=== PATIENT | male | born 1965 | race African-American/Black ===

== ENCOUNTER 2021-01-14 14:18 | Emergency (ER) | payer MEDICAID ==
[~2021-01-14] VITALS: Ht 175.3 cm; Wt 85.0 kg
[2021-01-14 17:00] LABS: CLARITY URINE CLEAR (CLEAR); COLOR URINE YELLOW (YELLOW); KETONES URINE TRACE (NEGATIVE); LEUKOCYTE ESTERASE URINE 1+ (NEGATIVE); NITRITE URINE NEGATIVE (NEGATIVE); OCCULT BLOOD URINE 3+ (NEGATIVE); PH URINE 5.5 (4.5-8.0); PROTEIN URINE NEGATIVE (NEGATIVE); SPECIFIC GRAVITY URINE 1.025 (1.005-1.030)
[2021-01-14 17:30] LABS: CHLORIDE 107 mEq/L (98-107)
[2021-01-14] MEDS ORDERED: CIPR-263 MT (17:56)
[2021-01-14 18:19] VITALS: BP 133/90
== END 2021-01-14 18:20 | disposition home or self-care (01) ==
LOC: ER 14:18
DX: N30.90 Cystitis, unspecified without hematuria (principal); I10 Essential (primary) hypertension; F12.10 Cannabis abuse, uncomplicated
CPT/HCPCS: 36415; 80048; 81003; 93005; 99284

== ENCOUNTER 2024-03-08 15:57 | Emergency (ER) | payer MEDICAID ==
[~2024-03-08] VITALS: Ht 170.2 cm; Wt 75.0 kg
[~2024-03-08 15:57] MED LIST: CIPR-263 MT
[2024-03-08 16:03] VITALS: O2SAT 99
[2024-03-08 17:44] LABS: BASOPHILS % 0.6 % (0.0-2.0); EOSINOPHILS % 1.1 % (0.0-5.0); HEMATOCRIT. 40.5 % (42.0-52.0); HEMOGLOBIN. 13.5 g/dL (14.0-18.0); LYMPHOCYTES % 18.2 % (20.0-50.0); MEAN CORPUSCULAR HEMOGLOBIN 29.9 pg (28.0-32.0); MEAN CORPUSCULAR HGB CONC 33.3 g/dL (31.0-37.0); MEAN CORPUSCULAR VOLUME 89.8 fL (80.0-94.0); MEAN PLATELET VOLUME 9.1 fl (7.4-10.4); MONOCYTES % 10.5 % (2.0-8.0); NEUTROPHILS % 69.6 % (40.0-76.0); PLATELET 214 x1000/uL (130-400); RED BLOOD CELL COUNT 4.51 mill/uL (4.7-6.1); RED CELL DISTRIBUTION WIDTH 13.7 % (11.6-14.6); WHITE BLOOD COUNT 6.6 x1000/uL (4.5-11.0)
[2024-03-08 17:48] LABS: CHLORIDE 103 mEq/L (98-107); POTASSIUM 2.9 mEq/L (3.5-5.1); SODIUM 138 mEq/L (136-145)
[2024-03-08 17:49] LABS: CARBON DIOXIDE 29 mEq/L (21-32)
[2024-03-08 17:54] LABS: CREATININE 0.7 mg/dL (0.6-1.3)
[2024-03-08 17:55] LABS: GLUCOSE 89 mg/dL (70-105); UREA NITROGEN BLOOD 11 mg/dL (9-23)
[2024-03-08 17:56] LABS: TROPONIN I HIGH SENSITIVITY 15 ng/L (3.0-53)
[2024-03-08 18:11] LABS: PROTHROMBIN TIME 10.8 sec (9.6-11.0)
[2024-03-08] MEDS: POTASSIUM CHLORIDE 20MEQ TABLET SR PO ONE (19:49)
[2024-03-08 20:38] LABS: TROPONIN I HIGH SENSITIVITY 22 ng/L (3.0-53)
[2024-03-08 22:08] VITALS: BP 179/90; PULSE 75; RESP 16; TEMP 98.2
== END 2024-03-08 22:32 | disposition home or self-care (01) ==
LOC: ER 16:03
DX: R07.89 Other chest pain (principal); E87.6 Hypokalemia; I10 Essential (primary) hypertension; F12.10 Cannabis abuse, uncomplicated
CPT/HCPCS: 36415; 71045; 80048; 84484; 85025; 93005; 99285

== ENCOUNTER 2024-06-29 16:28 | Emergency (ER) | payer MEDICAID ==
[~2024-06-29] VITALS: Ht 177.8 cm; Wt 73.0 kg
[2024-06-29 16:36] VITALS: O2SAT 98
[2024-06-29] MEDS: ASPIRIN 81MG TABLET PO ONE (17:25)
[2024-06-29] MEDS: KETOROLAC 15MG/ML VIAL IV ONE (17:25)
[2024-06-29] MEDS: ACETAMINOPHEN 325MG TABLET PO ONE (17:25)
[2024-06-29] MEDS: SODIUM CHLORIDE 0.9% 1,000 ML IV ONE (17:49)
[2024-06-29 18:15] LABS: HEMATOCRIT. 39.4 % (42.0-52.0); HEMOGLOBIN. 12.6 g/dL (14.0-18.0); MEAN CORPUSCULAR VOLUME 87.4 fL (80.0-94.0); MEAN PLATELET VOLUME 9.6 fl (7.4-10.4); PLATELET 183 x1000/uL (130-400); RED BLOOD CELL COUNT 4.51 mill/uL (4.7-6.1); RED CELL DISTRIBUTION WIDTH 14.1 % (11.6-14.6); WHITE BLOOD COUNT 15.4 x1000/uL (4.5-11.0)
[2024-06-29 18:20] LABS: CHLORIDE 102 mEq/L (98-107); SODIUM 134 mEq/L (136-145)
[2024-06-29 18:21] LABS: CALCIUM 8.5 mg/dL (8.7-10.4); CARBON DIOXIDE 27 mEq/L (21-32); DIFFERENTIAL COMMENT 1
[2024-06-29 18:26] LABS: GLUCOSE 117 mg/dL (70-105); UREA NITROGEN BLOOD 24 mg/dL (9-23)
[2024-06-29 18:27] LABS: TROPONIN I HIGH SENSITIVITY 48 ng/L (3.0-53)
[2024-06-29 18:28] LABS: ALANINE AMINOTRANSFERASE 15 IU/L (10-49); ALBUMIN 3.5 g/dL (3.2-4.8); ASPARTATE AMINOTRANSFERASE 16 IU/L (<34); BILIRUBIN TOTAL 0.5 mg/dL (0.1-1.0); PROTEIN TOTAL 6.4 g/dL (6.0-8.3)
[2024-06-29] MEDS ORDERED: CEFTRIAXONE 1GM/50ML 50 ML IV ONE (18:30)
[2024-06-29 18:37] LABS: NUCLEATED RED BLOOD CELLS 1 /100 WBC; PLATELET ESTIMATE NORMAL
[2024-06-29 18:48] LABS: POTASSIUM 2.7 mEq/L (3.5-5.1)
[2024-06-29 18:49] LABS: CREATININE 1.4 mg/dL (0.6-1.3)
[2024-06-29] MEDS: KCL 20MEQ/100ML PREMIX 100 ML IV ONE (20:30)
[2024-06-29] MEDS: VANCOMYCIN 1G PREMIX 200 ML IV SCH (20:30)
[2024-06-29] MEDS: POTASSIUM CHLORIDE 20MEQ TABLET SR PO ONE (20:30)
[2024-06-29] MEDS ORDERED: PIPERACILLIN/TAZO 3.375G/50ML 50 ML IV SCH (22:00)
[2024-06-29] MEDS ORDERED: IOHEXOL-350 100 ML BOTTLE ONE (23:23)
[2024-06-30 00:21] LABS: TROPONIN I HIGH SENSITIVITY 39 ng/L (3.0-53)
[2024-06-30] MEDS ORDERED: CEFTRIAXONE 1GM/50ML 50 ML IV NR (02:00)
[2024-06-30 02:50] VITALS: BP 146/97; PULSE 85; RESP 17; TEMP 36.44736; O2SAT 97
== END 2024-06-30 02:53 | disposition short-term general hospital (02) ==
LOC: ER 16:28
DX: A41.9 Sepsis, unspecified organism (principal); R65.20 Severe sepsis without septic shock; F12.10 Cannabis abuse, uncomplicated; E87.6 Hypokalemia; J18.9 Pneumonia, unspecified organism; Z20.822 Contact with and (suspected) exposure to COVID-19
CPT/HCPCS: 80053; 83880; 83605; 83735; 85025; 85379; 87040; 87186; 84484; 87077; 36415; 84145; 71045; 71275; 93005; 96368; 96365; 96366; 96375; 99291; 87804 ×2; 87426; Q9967; Z7610 ×2; J1885; J2543; J3480; J3370; J7030